=== PATIENT | female | born 1975 | race Caucasian/White ===

== ENCOUNTER 2016-08-23 10:36 | Emergency (ER) | payer OTHER ==
[~2016-08-23] VITALS: Ht 170.2 cm; Wt 81.8 kg
[~2016-08-23 10:36] MED LIST: LEVOTHROID,S0.075 MG PO; LOESTRIN1 EACH PO
[2016-08-23] MEDS ORDERED: SYNTHROID100 MCG PO (11:14)
[2016-08-23 11:31] LABS: ADD MIUA? NO; BILIRUBIN SMALL; BLOOD NEGATIVE; COLOR DK YELLOW ((YELLOW)); GLUCOSE (STRIP) NEGATIVE; KETONES TRACE; LEUKOCYTES NEGATIVE; NITRITE NEGATIVE; PROTEIN (STRIP) 30; SPECIFIC GRAVITY 1.036 (1.000-1.030); UROBILINOGEN 0.2 MG/DL (0.2-1.0)
[2016-08-23 11:33] LABS: INTERNAL CONTROL VALID? YES
[2016-08-23 11:37] LABS: EOSINOPHIL COUNT 0.1 K/uL (0-0.3); HEMATOCRIT 44.6 % (36.0-46.0); IMMATURE GRANULOCYTE (%) 0.2 % (0.0-0.7); IMMATURE GRANULOCYTE COUNT 0.1 K/uL; LYMPHOCYTE COUNT 1.1 K/uL (1.0-2.8); MCH 28.2 PG (29.0-34.0); MCHC 33.6 G/DL (30.0-36.0); MEAN PLAT.VOLUME 9.3 uM^3 (9.5-12.4); MONOCYTE (%) 11.6 % (3-12); MONOCYTE COUNT 0.6 K/uL (0-0.8); NEUTROPHIL (%) 63.5 % (45-76); NEUTROPHIL COUNT 3.2 K/uL (1.8-6.4); PLATELET COUNT 221 K/uL (156-360); RBC DIS.WIDTH-CV 13.3 % (11.8-14.6); RBC DIS.WIDTH-SD 40.8 % (39-53); RED BLOOD COUNT 5.31 M/uL (3.80-5.20)
[2016-08-23 11:47] LABS: CHLORIDE 104 mEq/L (99-109); POTASSIUM 4.1 mEq/L (3.7-5.4); SODIUM 138 mEq/L (136-147)
[2016-08-23 11:49] LABS: GLUCOSE 95 mg/dL (70-99)
[2016-08-23 11:50] LABS: ANION GAP 12 MEQ/L (2-14)
[2016-08-23 11:51] LABS: TOTAL BILIRUBIN 0.7 mg/dL (0.0-1.0)
[2016-08-23 11:53] LABS: ALKALINE PHOSPHATASE 42 IU/L (3-129); GFR ESTIMATE (CALCULATED) > 59 mL/min/
[2016-08-23 11:54] LABS: UREA NITROGEN (BUN) 13 mg/dL (9-23)
[2016-08-23 11:56] LABS: LIPASE 27 U/L (1.0-51.0)
[2016-08-23] MEDS ORDERED: BENTYL10 MG PO (13:26)
[2016-08-23 14:37] VITALS: BP 120/75
== END 2016-08-23 14:37 | disposition home or self-care (01) ==
LOC: EME 10:36
PROVIDERS: Physician Assistant
DX: K52.9 Noninfective gastroenteritis and colitis, unspecified (principal)
CPT/HCPCS: 74176; 80053; 81003; 83690; 84703; 85025; 99281; 99284